=== PATIENT | male | born 1990 | race Caucasian/White ===

== ENCOUNTER 2019-08-09 14:46 | Emergency (ER) | payer OTHER ==
[~2019-08-09] VITALS: Ht 170.2 cm; Wt 95.3 kg
[~2019-08-09 14:46] MED LIST: ZYNCOF 20-400120 ML PO
[2019-08-09] MEDS ORDERED: FLONASE ALLERG9.9 ML NASAL (17:16)
[2019-08-09] MEDS ORDERED: KETO10TA2 PO (17:16)
[2019-08-09] MEDS ORDERED: MUCINEX DM ER1 EAC1 PO (17:16)
== END 2019-08-09 17:33 | disposition home or self-care (01) ==
LOC: ER 14:46
DX: J32.8 Other chronic sinusitis (principal)

== ENCOUNTER 2021-07-01 20:17 | Emergency (ER) | payer OTHER ==
[~2021-07-01] VITALS: Ht 172.7 cm; Wt 95.3 kg
[~2021-07-01 20:17] MED LIST changes: +FLONASE ALLERG9.9 ML NASAL; +KETO10TA2 PO; +MUCINEX DM ER1 EAC1 PO
== END 2021-07-01 21:03 | disposition home or self-care (01) ==
LOC: ER 20:17
DX: L29.9 Pruritus, unspecified (principal)

== ENCOUNTER 2024-09-02 19:11 | Emergency (ER) | payer OTHER ==
[~2024-09-02] VITALS: Ht 172.7 cm; Wt 97.5 kg
[2024-09-02] MEDS ORDERED: ONDANSETRON HCL 2 MG/ML VIAL IV ONE (20:00)
[2024-09-02] MEDS ORDERED: SODIUM CHLORIDE 0.45 % 500 ML IV ONE (20:00)
[2024-09-02] MEDS ORDERED: FAMOTIDINE/PF 20 MG/2 ML VIAL IV ONE (20:00)
[2024-09-02] MEDS ORDERED: FAMOTIDINE/PF 20 MG/2 ML VIAL ONE (20:22)
[2024-09-02] MEDS ORDERED: ONDANSETRON HCL 2 MG/ML VIAL ONE (20:22)
[2024-09-02 20:29] LABS: HEMATOCRIT 42.2 % (39.0-48.0); HEMOGLOBIN 13.9 g/dL (13-16.00); MEAN CELL VOLUME 81.8 fL (80.0-100.00); MEAN CORPUSCULAR HEMOGLOBIN 26.9 pg (27.00-32.0); MEAN CORPUSCULAR HGB CONC 32.8 g/dl (32.0-36.0); PLATELET COUNT 283 K/uL (150-450); RED BLOOD COUNT 5.16 M/uL (4.00-6.00); RED CELL DISTRIBUTION WIDTH 13.6 % (11.5-14.5)
[2024-09-02 20:45] LABS: URINE APPEARANCE Clear; URINE BILIRRUBIN Negative (NEGATIVE); URINE BLOOD Negative; URINE COLOR Yellow; URINE GLUCOSE Negative (NEGATIVE); URINE KETONE Negative (NEGATIVE); URINE LEUKOCYTE Negative; URINE NITRATE Negative; URINE PROTEIN Negative (NEGATIVE); URINE UROBILINOGEN 0.2 E.U./dl
[2024-09-02 20:46] LABS: URINE BACTERIA 4.8 uL (0.0-1933); URINE EPITHELIAL CELLS 1.4 uL (0.0-38.8); URINE WBC 4.4 uL (0.0-23.2)
[2024-09-02 20:49] LABS: URINE CAST 0.29 uL (0.0-1.40); URINE RBC 1.1 uL (0.0-20.8)
[2024-09-02 20:50] LABS: ALBUMIN 3.9 gm/dL (3.4-5.0); BILIRUBIN TOTAL 0.21 mg/dL (0.3-1.2); CALCIUM 9.2 mg/dL (8.5-10.1); CREATININE SERUM 0.96 mg/dL (0.70-1.30); GFR 89.13; GLOBULINA 3.5 G/DL (2.4-3.5); POTASSIUM 3.86 mEq/L (3.5-5.1); TOTAL PROTEIN 7.4 gm/dL (6.4-8.2)
== END 2024-09-02 22:25 | disposition home or self-care (01) ==
LOC: ER 19:11
PROVIDERS: General Practice
DX: N20.0 Calculus of kidney (principal); K29.70 Gastritis, unspecified, without bleeding; R10.11 Right upper quadrant pain; R10.9 Unspecified abdominal pain; Z91.013 Allergy to seafood